=== PATIENT | female | born 1950 | race Caucasian/White ===

== ENCOUNTER → 2020-03-24 16:19 | Outpatient (BNVA) | payer MEDICARE, SELFPAY | PROVIDERS: PCP Internal Medicine; Visit Provider Anesthesiology | DX: M47.816 Spondylosis without myelopathy or radiculopathy, lumbar region (principal); M16.12 Unilateral primary osteoarthritis, left hip; G89.4 Chronic pain syndrome | CPT/HCPCS: 99213 ==

== ENCOUNTER 2020-12-09 13:52 | Outpatient (REF) | payer MEDICARE, SELFPAY ==
--- NOTE | 2020-12-09 15:23 | MHC.AU.ANR ---
Adult Audiological Evaluation Date of Visit: 12/09/20 Reason for Appointment: Audiological evaluation due to concern for decreased hearing. Ms. Fleming notes a decreased in her hearing over the past few years. She notes difficulties understanding speech and hearing on the telephone. She reports tinnitus that she describes as a static noise that she's had for a long time and is able to ignore. 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 Does patient feel they have a hearing loss?: Yes If Yes, Which Ear?: Both Ears When Was Hearing Difficulty First Noticed?: Years ago Has hearing been tested previously?: Yes Previous Hearing Test Results: Patient doesn't remember where or when hearing was tested previously. Results not available to be reviewed today. Hearing Handicap Inventory: HHIE SCORE: 32 Based on HHIE score, patient has: Severe perceived hearing handicap Ear History: Bothersome Tinnitus/Ringing/Noises in Ears: Both Ears Medical History: Medical History: Heart Problems, High Blood Pressure, Tobacco Use, Vascular Problems Medical History (Other): Hysterectomy 28 years ago, Crohn's disease Allergies: Duloxetine, Latex, Wellbutrin Medication List: Adalimumab 40 mg injection every 14 days, Amlodipine 10 mg, Aspirin 81 mg, Atenolol 100 mg, Atorvastatin 80 mg, Cilostazol 50 2x daily, Clopidogrel 75 mg, Folic Acid 1 mg, Methotrexate 2.5 mg 4x weekly, Vitamin B12, Calcium + Vitamin D, Fish Oil, Cetirizine 10 mg, Multi Vitamin, Lisinopril 10 mg, Nitroglycerin .04 mg PRN, Venlafaxine 75 mg, Sulfasalazine 500 mg 4x daily Otoscopy: Right Ear: Unremarkable Left Ear: Unremarkable Tympanometry: Tympanometry performed due to: Conductive component found in audiometric results Right Ear: Hypercompliant Middle Ear System (Type Ad) Left Ear: Hypercompliant Middle Ear System (Type Ad) Hearing Evaluation: Transducer(s) Used: Insert Earphones, Bone Conduction Method: Conventional Audiometry Stimuli Used: Pure Tones Right Ear: Description of Hearing: Mild sloping to moderately severe sensorineural hearing loss from 250-8000 Hz. Left Ear: Description of Hearing: Mild sensorineural hearing loss from 250-2000 Hz, sloping to a moderate conductive hearing loss at 3000 Hz, a moderately severe mixed shandra loss at 4000 Hz, and a severe hearing loss from 3170-0120 Hz. Air-conduction thresholds are 15-20 dBHL worse in the left ear than the right at 3352-2514 Hz. Speech Recognition Threshold (SRT): Method Used: Monitored Live Voice Stimuli Used: Spondee Words Right Ear: 30 dBHL Left Ear: 35 dBHL Word Discrimination: Method: Recorded Lists Word Lists Used: NU-6 Right Ear: 96% at 70 dBHL Left Ear: 92% at 75 dBHL Recommendations: Audiological re-evaluation in one year. Trial with amplification is recommended. Medical clearance from a physician is required before fitting. Referral to Ear, Nose, and Throat is recommended to evaluate asymmetric hearing and mixed hearing loss in the left ear. Ms. Fleming is considered a candidate for binaural hearing aids. Recommended she return for a hearing aid consultation should she decide to pursue hearing aids through our clinic. Diagnosis: Primary Diagnosis: H90.3 Bilateral Sensorineural Hearing Loss Secondary Diagnosis: H69.93 Unspecified Eustachian Tube Dysfunction, Bilateral Services Performed: Services Performed: Comprehensive Audiological Evaluation (CPT 35164) Tympanometry (CPT 33230) Signature: Provider: Lydia Leon, CCC-A
== END 2020-12-09 13:53 | disposition home or self-care (01) ==
LOC: HO.SH 13:52
PROVIDERS: Visit Provider Internal Medicine
DX: H90.3 Sensorineural hearing loss, bilateral (principal); H69.93 Unspecified Eustachian tube disorder, bilateral
CPT/HCPCS: 92557; 92567

== ENCOUNTER 2022-02-16 10:04 | Outpatient (REF) | payer MEDICARE, SELFPAY ==
--- NOTE | 2022-02-26 07:54 | MHC.AU.ANO ---
Adult Audiological Evaluation Date of Visit: 02/16/22 Resident Assistant Used: Not Applicable Reason for Appointment: Audiologic re-evaluation due to question of change in hearing ability. Oanh was previously tested at this office on 12/09/2020 and found to have mild hearing loss at 250-2000 Hz, dropping to an asymmetric moderately-severe to severe high frequency sensorineural hearing loss with the left ear being poorer and significant conductive components noted. Referral to ENT and trial with binaural hearing aids were recommended. Oanh reports she saw the ENT, but is unsure of the reason for the asymmetry. Records have been requested, but not received prior to the writing of this report. Since last seen at this office and the ENT, Oanh experienced a heart attack and atrial fibrilation. She also re cently had a bug bite in the right ear with bleeding. Eardrops were prescribed by her PCP and an appointment for cerumen removal has been scheduled. Medical History: Medical History: Heart Problems, High Blood Pressure, Tobacco Use, Vascular Problems Medical History: Hysterectomy 28 years ago, Crohn's disease Allergies: Duloxetine, Latex, Wellbutrin Medication List: Xarelto, Diltiazem, Humira, Albuterol, Atorvastatin, Cetirizine, Cilostazol, Furosemide, Lisinopril, Methotrexate, Multivitalmin, Nicotine patch, Nitroglycerin, Fish oil, Pantoprazole, Sulfsalazine, Ticagrelor, Venlafaxine, Vitamine B12 and D3, Folic Acid, Calcium Otoscopy: Right Ear: Mostly occluding cerumen Left Ear: Unremarkable Tympanometry: Tympanometry performed due to: To assess integrity of the middle ear system Right Ear: Normal Middle Ear System (Type A) Left Ear: Hypercompliant Middle Ear System (Type Ad) Otoacoustic Emissions Did Not Test Hearing Evaluation: Transducer(s) Used: Insert Earphones Bone Conduction Method: Conventional Audiometry Stimuli Used: Pure Tones Right Ear: Description of Hearing: Mild sloping to moderately-severe mixed hearing loss. Left Ear: Description of Hearing: Mild sensorineural hearing loss from 250-1000 Hz, sloping to a moderate mixed hearing loss at 0104-7418 Hz, dropping to a moderately-severe to severe loss at 7153-1146 Hz Speech Recognition Threshold (SRT): Method Used: Monitored Live Voice Stimuli Used: Right Ear: 35 dB HL Left Ear: 35 dB HL Word Discrimination: Method: Recorded Lists Word Lists Used: NU-6 Right Ear: 88% at 75 dB HL Left Ear: 88% at 75 dB HL Comparison: Compared to most recent evaluation: Hearing thresholds have decreased 5-20 dB for the right ear and 5-10 dB for the left ear. Interpretation of Results: The decrease for the right ear may be related to the amount of cerumen in the ear canal. Cerumen removal with PCP is scheduled. Recommendations: Audiological re-evaluation in one year. Will send a reminder card. Trial with amplification is recommended. Follow-up with physician for cerumen removal. Oanh is advised to contact her insurance to determine hearing aid providers covered by her plan. If Oanh would like to pursue hearing aids from this office, she may schedule a Hearing Aid Evaluation appointment. Diagnosis: Primary Diagnosis: H90.6 Mixed Hearing Loss, Bilateral Secondary Diagnosis: H93.13 Tinnitus, Bilateral Services Performed: Comprehensive Audiological Evaluation (CPT 28623) Tympanometry (CPT 42011) Signature: Provider: Lydia Addison, [facility]
== END 2022-02-16 10:05 | disposition home or self-care (01) ==
LOC: HO.SH 10:04
PROVIDERS: Visit Provider Internal Medicine
DX: H90.6 Mixed conductive and sensorineural hearing loss, bilateral (principal); H93.13 Tinnitus, bilateral
CPT/HCPCS: 92557; 92567